=== PATIENT | female | born 1990 | race Two or more races ===

== ENCOUNTER 2021-05-07 17:13 | Emergency (ER) | payer OTHER ==
[~2021-05-07] VITALS: Ht 165.1 cm; Wt 74.8 kg
[2021-05-07] MEDS ORDERED: methylPREDNISolone SOD SUCC 125 MG/2 ML VL IM ONE (19:15)
[2021-05-07] MEDS ORDERED: ACETAMINOPHEN 325 MG TAB PO ONE (19:15)
[2021-05-07] MEDS ORDERED: cefTRIAXone SOD 1,000 MG VL IM ONE (19:15)
[2021-05-07 23:54] VITALS: BP 120/81
== END 2021-05-07 23:56 | disposition home or self-care (01) ==
LOC: ER 17:13
DX: U07.1 COVID-19 (principal)
CPT/HCPCS: 36415; 71045; 87426; 96372; 99284; J0696; J2930